=== PATIENT | female | born 1970 | race African-American/Black ===

== ENCOUNTER 2019-04-26 08:36 | Emergency (ER) | payer OTHER, SELFPAY ==
[2019-04-26] MEDS ORDERED: Ketorolac Tromethamine 60 MG/2 ML VIAL ONE (09:09)
== END 2019-04-26 09:15 | disposition home or self-care (01) ==
LOC: NAV ERS 08:36
DX: T22.112A Burn of first degree of left forearm, initial encounter (principal); T22.111A Burn of first degree of right forearm, initial encounter; T23.102A Burn of first degree of left hand, unspecified site, initial encounter; T23.101A Burn of first degree of right hand, unspecified site, initial encounter; I10 Essential (primary) hypertension; F41.9 Anxiety disorder, unspecified; F17.210 Nicotine dependence, cigarettes, uncomplicated; X11.8XXA Contact with other hot tap-water, initial encounter
CPT/HCPCS: 96372; J1885